=== PATIENT | female | born 1940 | race Caucasian/White ===

== ENCOUNTER → 2017-12-18 | Outpatient (CLI) | payer MEDICARE, OTHER ==
[~2017-12-18] MED LIST: ASPI-496 PO; MULT-709 PO; OMEG1CAP39 PO; OXYC5CAP2 PO; POTA20TA89 PO; TRIA1TAB3 PO; [UNRECOGNIZED DRUG - CODE] PO
[2017-12-18 13:01] LABS: BASOPHILS # (AUTO) 0.05 x10^3/uL (0-0.1); BASOPHILS % (AUTO) 1 % (0-1); EOSINOPHILS # (AUTO) 0.07 x10^3/uL (0-0.4); EOSINOPHILS % (AUTO) 1 % (1-7); LYMPHOCYTES # (AUTO) 2.37 x10^3/uL (1-3.4); LYMPHOCYTES % (AUTO) 28 % (22-44); MD NO; MEAN CORPUSCULAR HEMOGLOBIN 31.1 pg (27.0-34.8); MEAN CORPUSCULAR HGB CONC 33.9 g/dL (32.4-35.8); MEAN CORPUSCULAR VOLUME 91.7 fL (80-100); MEAN PLATELET VOLUME 7.8 fL (7.4-10.4); MONOCYTES # (AUTO) 0.47 x10^3/uL (0.2-0.8); MONOCYTES % (AUTO) 6 % (2-9); NEUTROPHILS # (AUTO) 5.61 x10^3/uL (1.8-6.8); NEUTROPHILS % (AUTO) 66 % (42-75); PLATELET COUNT 289 x10^3/uL (130-400); RED BLOOD COUNT 4.91 x10^6/uL (3.82-5.3); RED CELL DISTRIBUTION WIDTH 13.6 % (9.6-15.2)
[2017-12-18 13:04] LABS: MICROSCOPIC NOT IND
[2017-12-18 13:07] LABS: CULTURE INDICATED? NO
[2017-12-18 13:13] LABS: ALBUMIN 3.9 g/dL (3.4-5.0); ANION GAP 9 mmol/L (5-15); CALCIUM 9.4 mg/dL (8.5-10.1); CHLORIDE 101 mmol/L (98-107)
[2017-12-18 13:16] LABS: ALANINE AMINOTRANSFERASE 28 U/L (12-78); ALKALINE PHOSPHATASE 82 U/L (45-117); BILIRUBIN,TOTAL 0.4 mg/dL (0.2-1.0); CREATININE 0.88 mg/dL (0.55-1.02)
== END | disposition home or self-care (01) ==
LOC: STAR 11:48
PROVIDERS: ATTEND Orthopaedic Surgery
DX: Z01.818 Encounter for other preprocedural examination (principal); M17.12 Unilateral primary osteoarthritis, left knee; Z87.891 Personal history of nicotine dependence
CPT/HCPCS: 36415; 80053; 81003; 85025; 87081; 93005

== ENCOUNTER 2017-12-25 05:11 | Inpatient (IN) | payer MEDICARE, OTHER ==
[2017-12-18 14:31] VITALS: BP 154/90
[~2017-12-25] VITALS: Ht 165.1 cm; Wt 67.0 kg
[2017-12-25] MEDS ORDERED: LIDOCAINE-MPF 1%, 2ML INFIL ONE (06:00)
[2017-12-25] MEDS ORDERED: KETOROLAC 60 MG/2 ML ONE (06:18)
[2017-12-25] MEDS ORDERED: ROPIvacaine/PF 0.2%, 20 ML ONE (06:18)
[2017-12-25] MEDS ORDERED: TRANEXAMIC ACID 100 MG/ML, 10ML ONE (06:18)
[2017-12-25] MEDS ORDERED: SODIUM CHLORIDE 0.9% 100 ML ONE (06:19)
[2017-12-25] MEDS ORDERED: EPINEPHRINE 1 MG/ML, 1ML ONE (06:19)
[2017-12-25] MEDS ORDERED: VANCOMYCIN 1,000 MG ONE (06:19)
[2017-12-25] MEDS: LACTATED RINGERS 1,000 ML IV SCH ×2 (06:27→10:24)
[2017-12-25] MEDS ORDERED: FENTANYL PF 250 MCG/5ML ONE (06:46)
[2017-12-25] MEDS ORDERED: PROPOFOL 10 MG/ML, 20ML ONE (07:10)
[2017-12-25] MEDS ORDERED: ONDANSETRON 2MG/ML, 2ML ONE (07:10)
[2017-12-25] MEDS ORDERED: CLINDAMYCIN 150 MG/ML, 6ML ONE (07:24)
[2017-12-25] MEDS ORDERED: OXYcodone 5 MG/5 ML ORAL.SOL UDC PO PRN (08:00)
[2017-12-25] MEDS ORDERED: LABETALOL 5MG/ML, 20ML IV PRN (08:00)
[2017-12-25] MEDS ORDERED: FENTANYL PF 100 MCG/2ML IV PRN (08:00)
[2017-12-25] MEDS ORDERED: hydrALAzine 20 MG/ML, 1ML IV PRN (08:00)
[2017-12-25] MEDS ORDERED: ALBUTEROL SULFATE 2.5 MG/3 ML NPPB PRN (08:00)
[2017-12-25] MEDS ORDERED: HYDROmorphone 1 MG/ML, 1ML IV PRN ×2 (08:00→09:00)
[2017-12-25] MEDS ORDERED: ACETAMINOPHEN 325 MG TABLET PO PRN (08:00)
[2017-12-25] MEDS ORDERED: OXYcodone 5 MG/5 ML ORAL.SOL UDC ONE (08:51)
[2017-12-25] MEDS ORDERED: ACETAMINOPHEN 650 MG/20.3 ML UDC ONE (08:51)
[2017-12-25] MEDS ORDERED: SENNA/DOCUSATE TABLET PO PRN (09:00)
[2017-12-25] MEDS ORDERED: ONDANSETRON 2MG/ML, 2ML IV PRN (09:00)
[2017-12-25] MEDS ORDERED: ALUMINUM/MAG/SIMETHICONE 30 ML UDC PO PRN (09:00)
[2017-12-25] MEDS ORDERED: TRANEXAMIC ACID 1,000 MG in SODIUM CHLORIDE 0.9% 100 ML IVPB ONE (09:00)
[2017-12-25] MEDS ORDERED: BISACODYL 10 MG SUPP PR PRN (09:00)
[2017-12-25] MEDS ORDERED: ACETAMINOPHEN 650 MG/20.3 ML UDC PO PRN (09:00)
[2017-12-25] MEDS ORDERED: MAGNESIUM HYDROXIDE 8%, 30ML UDC PO PRN (09:00)
[2017-12-25] MEDS ORDERED: ONDANSETRON 4 MG TABLET PO PRN (09:00)
[2017-12-25] MEDS ORDERED: DIPHENHYDRAMINE 50 MG CAPSULE PO PRN (09:00)
[2017-12-25] MEDS ORDERED: ZOLPIDEM 5MG TABLET PO PRN (09:00)
[2017-12-25] MEDS ORDERED: PROMETHAZINE 25 MG/ML, 1ML IM PRN (09:00)
[2017-12-25] MEDS: TRIAMTERENE-HCTZ 37.5/25 MG TABLET PO SCH (09:00)
[2017-12-25] MEDS ORDERED: PROMETHAZINE 12.5 MG SUPP PR PRN (09:00)
[2017-12-25 10:00] VITALS: BP 135/80
[2017-12-25 10:15] VITALS: BP 108/79
[2017-12-25 10:30] VITALS: BP 122/77
[2017-12-25] MEDS: D5%-0.45% NACL 1,000 ML IV SCH ×2 (11:08→19:05)
[2017-12-25] MEDS: TAMSULOSIN 0.4 MG CAP.ER.24H PO SCH (11:08)
[2017-12-25] MEDS: DOCUSATE 100 MG CAPSULE PO SCH ×2 (11:08→20:11)
[2017-12-25] MEDS: MULTIVITAMINS/MINERALS TABLET PO SCH (11:08)
[2017-12-25] MEDS: HYDROcodone/APAP 10/325 MG TABLET PO PRN ×2 (13:08→20:11)
[2017-12-25 13:10] VITALS: BP 122/76
[2017-12-25] MEDS ORDERED: CEFAZOLIN PMX 2GM/50ML 50 ML IVPB SCH (14:30)
[2017-12-25] MEDS: CLINDAMYCIN PMX 600MG/50ML 50 ML IV SCH ×2 (15:36→23:16)
[2017-12-25 19:53] VITALS: BP 145/73
[2017-12-26 00:17] VITALS: BP 160/83
[2017-12-26] MEDS: HYDROcodone/APAP 10/325 MG TABLET PO PRN ×4 (00:26→12:24)
[2017-12-26] MEDS: DIAZEPAM 5 MG TABLET PO PRN ×2 (00:28→04:21)
[2017-12-26] MEDS ORDERED: CEFAZOLIN PMX 1GM/50ML 50 ML ONE (01:02)
[2017-12-26] MEDS: D5%-0.45% NACL 1,000 ML IV SCH ×2 (03:05→08:24)
[2017-12-26 04:09] VITALS: BP 117/71
[2017-12-26] MEDS ORDERED: DEXAMETHASONE 4 MG/ML, 1ML IVPush SCH (06:00)
[2017-12-26] MEDS ORDERED: ASPIRIN 81 MG TABLET EC PO SCH (06:00)
[2017-12-26 07:08] VITALS: BP 124/74
[2017-12-26] MEDS: MULTIVITAMINS/MINERALS TABLET PO SCH (08:24)
[2017-12-26] MEDS: TAMSULOSIN 0.4 MG CAP.ER.24H PO SCH (08:24)
[2017-12-26] MEDS: DOCUSATE 100 MG CAPSULE PO SCH (08:24)
[2017-12-26] MEDS: TRIAMTERENE-HCTZ 37.5/25 MG TABLET PO SCH (08:24)
[2017-12-26] MEDS ORDERED: KETOROLAC 30 MG/1 ML IV SCH (09:00)
[2017-12-26 13:16] VITALS: BP 118/69
== END 2017-12-26 15:22 | disposition home health service (06) | DRG 470 ==
LOC: OR 05:11 → ORIP 08:35 → 4NOR 09:48
PROVIDERS: ADMIT Orthopaedic Surgery; ATTEND Orthopaedic Surgery
PROC: 0SRD0J9 Replacement of Left Knee Joint with Synthetic Substitute, Cemented, Open Approach (ICD-10-PCS; principal; 2017-12-25 07:30)
DX: M17.12 Unilateral primary osteoarthritis, left knee (principal); I10 Essential (primary) hypertension; Z96.651 Presence of right artificial knee joint; Z60.2 Problems related to living alone; Z88.0 Allergy status to penicillin
CPT/HCPCS: 36415; 85014; 85018; C1713; G0378; J0171; J1100; J1885; J2405; J2704; J2795; J3010; J3370; C1776; J7120